=== PATIENT | female | born 1990 | race Caucasian/White ===

== ENCOUNTER 2016-05-26 07:47 | Inpatient (IN) | payer BC, MEDICAID ==
[2016-05-26 10:36] LABS: Hematocrit 36 % (35-47); Mean Corpuscular HGB Conc 33 g/dl (31-36); Mean Corpuscular Hemoglobin 31 pg (27-31); Mean Corpuscular Volume 93 fL (80-97); Mean Platelet Volume 7 um3 (7.4-10.4); Red Blood Count 3.86 10^6/ul (4.0-5.4); Red Cell Distribution Width 13 % (10.5-15)
[2016-05-26 10:37] LABS: Add Diff/Slide Review? Slide Review Added; Comments Flag Yes
[2016-05-26] MEDS ORDERED: OBEPIDURAL* 250 ML ONE (10:58)
[2016-05-26] MEDS ORDERED: fentaNYL* 50 MCG/ML 2 ML VIAL (100 MCG VIAL) ONE (10:59)
[2016-05-26] MEDS ORDERED: Sodium Citrate/Citric Acid* 15 ML UDC PO PRN (12:08)
[2016-05-26] MEDS ORDERED: Phenylephrine IV* 40 MCG/ML 10 ML SYRINGE IV PUSH PRN ×2 (12:08)
[2016-05-26] MEDS ORDERED: Famotidine TAB* 20 MG PO PRN (12:08)
[2016-05-26] MEDS ORDERED: OBEPIDURAL* 250 ML EPIDURAL SCH (13:00)
[2016-05-26] MEDS ORDERED: Oxytocin in LR* 20 UNITS/1,000 ML BAG IVPB ONE (19:04)
[2016-05-26] MEDS ORDERED: Acetaminophen TAB* 325 MG PO PRN (19:42)
[2016-05-26] MEDS ORDERED: oxyCODONE/Acetamin 5/325 MG* TAB PO PRN (19:42)
[2016-05-26] MEDS ORDERED: Dibucaine 1% 28.35 GM TUBE PR PRN (19:42)
[2016-05-26] MEDS ORDERED: Witch Hazel PAD* JAR TOPICAL PRN (19:42)
[2016-05-26] MEDS ORDERED: Oxytocin in LR* 20 UNITS/1,000 ML BAG IVPB SCH (20:00)
[2016-05-26] MEDS: Ibuprofen TAB* 600 MG PO PRN (22:23)
[2016-05-27] MEDS: Ibuprofen TAB* 600 MG PO PRN ×4 (04:33→23:07)
[2016-05-27 07:49] LABS: Hematocrit 33 % (35-47); Hemoglobin 10.8 g/dl (12.0-16.0); Mean Corpuscular HGB Conc 33 g/dl (31-36); Mean Corpuscular Hemoglobin 31 pg (27-31); Mean Corpuscular Volume 94 fL (80-97); Mean Platelet Volume 7 um3 (7.4-10.4); Red Blood Count 3.47 10^6/ul (4.0-5.4); Red Cell Distribution Width 14 % (10.5-15); White Blood Count 21.9 10^3/ul (3.5-10.8)
[2016-05-27 08:06] LABS: Add Diff/Slide Review? Slide Review Added; Comments Flag Yes
[2016-05-27] MEDS: Docusate CAP* 100 MG PO SCH ×4 (08:08→20:54)
[2016-05-27] MEDS ORDERED: Ferrous Gluconate TAB* 324 MG TAB PO SCH (09:00)
--- NOTE | 2016-05-28 06:40 | PTEDU ---
Patient Name: NADIA MELVIN OLEGARIONADIA KATZ selected video: Follow Me Mum: The [facility] to Successful to view on 7 at 6:38:50 [id number]
[2016-05-28] MEDS: Docusate CAP* 100 MG PO SCH ×2 (07:11→14:16)
[2016-05-28] MEDS: Ibuprofen TAB* 600 MG PO PRN ×2 (07:12→14:16)
--- NOTE | 2016-05-28 07:18 | PTEDU ---
Patient Name: NADIA MELVIN OLEGARIONADIA KATZ selected video: BBOB: Nurturing Your Gorgeous \T\Growing Baby by to view on 05/28/2016 at 7:16:55 AM [id number]
[2016-05-28 07:57] VITALS: BP 132/93
[2016-05-28] MEDS ORDERED: Measles, Mumps,Rubella VACC* 0.5 ML/VIAL SUBCUT ONE (09:06)
--- NOTE | 2016-05-28 09:15 | PTEDU ---
Patient Name: NADIA MELVIN NADIA MELVIN selected video: Never Ever Shake a Baby to view on 05/28/2016 [facility] 9:13:58 [id number]
== END 2016-05-28 15:09 | disposition home or self-care (01) | DRG 560 ==
LOC: MCHOBOUT 07:47 → MCHOB 09:38
PROVIDERS: ADMIT Nurse Practitioner; ATTEND Nurse Practitioner
PROC: 10E0XZZ Delivery of Products of Conception, External Approach (ICD-10-PCS; principal; 2016-05-26)
PROC: 10907ZC Drainage of Amniotic Fluid, Therapeutic from Products of Conception, Via Natural or Artificial Opening (ICD-10-PCS; 2016-05-26)
PROC: 0KQM0ZZ Repair Perineum Muscle, Open Approach (ICD-10-PCS; 2016-05-26)
PROC: 4A1HXCZ Monitoring of Products of Conception, Cardiac Rate, External Approach (ICD-10-PCS; 2016-05-26)
DX: O77.0 Labor and delivery complicated by meconium in amniotic fluid (principal); O70.1 Second degree perineal laceration during delivery; Z3A.39 39 weeks gestation of pregnancy; Z37.0 Single live birth; Z88.2 Allergy status to sulfonamides
CPT/HCPCS: 36415; 85025; 86850; 86900; 86901; A9270-GY; J3010

== ENCOUNTER 2018-09-29 18:19 | Emergency (ER) | payer BC ==
[2018-09-29 18:41] VITALS: BP 103/67
--- NOTE | 2018-09-29 18:57 | UC ---
Throat Pain/Nasal [place] HPI - HPI Summary HPI Summary: Sore throat, right ear feels clugged, pt feels hot/cold, and just feels awful. Has been exposed to strep. Symptoms started Wednesday night. - History of Current Complaint Chief Complaint: UCGeneralIllness Stated Complaint: THROAT COMPLAINT Time Seen by Provider: 09/29/18 18:42 Hx Obtained From: Patient Hx Last Menstrual Period: 09/28/18 ?: No Onset/Duration: Sudden Onset, Lasting Days Severity: Moderate Pain Intensity: 6 Associated Signs & Symptoms: Positive: Dysphagia, Sinus Discomfort, Nasal Discharge - Allergies/Home Medications Allergies/Adverse Reactions: Allergies Allergy/AdvReac Type Severity Reaction Status Date / Time bee venom protein (honey bee) Allergy Swelling Verified 09/29/18 18:41 Sulfa (Sulfonamide Allergy Swelling Verified 09/29/18 18:25 Antibiotics) Home Medications: Home Medications Dextroamphetamine/Amphetamine [Adderall 10 mg Tablet] 10 mg PO BID 09/29/18 [ History Confirmed 09/29/18] PMH/Surg Hx/FS Hx/Imm Hx Previously Healthy: Yes - Surgical History Surgical History: Yes Surgery Procedure, Year, and Place: [facility] 02/2012 - Family History Known Family History: Negative: Cardiac Disease, Hypertension - Social History Alcohol Use: Occasionally Substance Use Type: None Smoking Status (MU): Light Every Day Tobacco Smoker Type: Cigarettes Have You Smoked in the Last Year: Yes Household Exposure Type: Cigarettes - Immunization History Most Recent Influenza Vaccination: 03/18/16 Most Recent Tetanus Shot: 03/18/16 Most Recent Pneumonia Vaccination: never Review of Systems All Other Systems Reviewed And Are Negative: Yes Constitutional: Positive: Chills, Fatigue ENT: Positive: Sore Throat, Ear Ache, Nasal Discharge, Sinus Congestion Respiratory: Positive: Cough Neurological: Positive: Headache Is Patient Immunocompromised?: No Physical Exam Triage Information Reviewed: Yes Appearance: Well-Nourished, Ill-Appearing, Pain Distress Vital Signs: Initial Vital Signs Temp 98.7 F 09/29/18 18:34 Pulse 87 09/29/18 18:34 Resp 16 09/29/18 18:34 BP 103/67 09/29/18 18:34 Pulse Ox 99 09/29/18 18:34 Vital Signs Reviewed: Yes Eye Exam: Normal ENT: Positive: Pharyngeal erythema, TM bulging, TM dull, TM red - right ear, Sinus tenderness Dental Exam: Normal Neck exam: Normal Neck: Positive: Supple, Nontender, No Lymphadenopathy Respiratory Exam: Normal Respiratory: Positive: Chest non-tender, Lungs clear, Normal breath sounds Cardiovascular Exam: Normal Cardiovascular: Positive: RRR, No Murmur, Pulses Normal Abdominal Exam: Normal Bowel Sounds: Positive: Present Musculoskeletal Exam: Normal Neurological Exam: Normal Psychological Exam: Normal Skin Exam: Normal Throat Pain/Nasal Course/Dx - Course Course Of Treatment: hx obtained, exam performed ,meds reviewed, rapid strep is negative - Differential Dx/Diagnosis Provider Diagnosis: Right otitis media, Cough Discharge - Sign-Out/Discharge Documenting (check all that apply): Patient Departure All imaging exams completed and their final reports reviewed: No Studies - Discharge Plan Condition: Stable Disposition: HOME Prescriptions: Amoxicillin PO (*) [Amoxicillin 875 MG (*)] 875 mg PO BID #19 tab Patient Education Materials: Ear Infection (ED) Referrals: Ally Mccarty PA [Primary Care Provider] - Additional Instructions: 1. take the medication as prescribed. 2. Warm compresses, gentle massage 3. Ibuprofen for any pain or fever 4. Zyrtec daily for the next 2-3 weeks 5. Increase fluid intake and get rest. - Billing Disposition and Condition Condition: STABLE Disposition: Home
[2018-09-29] MEDS ORDERED: Amoxicillin PO (*) 500 MG CAP PO ONE (19:05)
[2018-09-29] MEDS ORDERED: Amoxicillin PO (*) 250 MG CAP PO ONE (19:05)
[2018-09-29] MEDS ORDERED: Acetaminophen / Codeine* #3 (300 MG/30 MG) TAB PO ONE (19:06)
== END 2018-09-29 19:35 | disposition home or self-care (01) ==
LOC: UCCORT 18:19
DX: H66.91 Otitis media, unspecified, right ear (principal); R05 Cough; Z20.828 Contact with and (suspected) exposure to other viral communicable diseases; Z88.2 Allergy status to sulfonamides; F17.210 Nicotine dependence, cigarettes, uncomplicated
CPT/HCPCS: 87651; 99212; A9270-GY; G0463